=== PATIENT | male | born 1980 | race Caucasian/White ===

== ENCOUNTER 2018-09-01 19:53 | Emergency (ER) | payer OTHER ==
--- NOTE | 2018-09-01 20:06 | PDOC ---
History of Present Illness - General History Source: Patient Exam Limitations: No Limitations - History of Present Illness Initial Comments: 09/01/18 20:54 The patient is a 37 year old male, with no significant PMH, who presents to the emergency department complaining of a headache that began yesterday. The patient states he went skiing yesterday when he slipped and hit his head on ice. The patient describes the intermittent headache as throbbing and dull in nature located to the right religion, no relief with ice pack. The patient denies any open wounds or losing conscience. Denies chest pain, shortness of breath, numbness, tingling,and dizziness. Denies fever, chills, nausea, vomit. PAST MEDICAL HISTORY: no significant history PAST SURGICAL HISTORY: no significant history FAMILY HISTORY: no pertinent history SOCIAL HISTORY: Pt lives with family and is employed. MEDICATIONS: reviewed ALLERGIES: Penicillin Adult ROS General: No fevers or chills, no weakness, no weight loss HEENT: No change in vision. No sore throat,. No ear pain CardioVascular: No chest pain or shortness of breath Respiratory:No cough, or wheezing. Gastrointestinal: no nausea, vomiting, diarrhea or constipation, No rectal bleeding Genitourinary: No dysuria, hematuria, or frequency Musculoskeletal: No joint or muscle pain or swelling Neurologic:+ headache. No vertigo, dizziness or loss of consciousness Psychiatric: nor depression Skin: No rashes or easy bruising Endocrine: no increased thirst or abnormal weight change Allergic: no skin or latex allergy All other systems reviewed and normal Basic PE GENERAL: The patient is awake, alert, and fully oriented, in no acute distress. HEAD: Normal with no signs of trauma. EYES: Pupils equal, round and reactive to light, extraocular movements intact, sclera anicteric, conjunctiva clear. EXTREMITIES: Normal range of motion, no edema. NEUROLOGICAL: Normal speech, normal gait. PSYCH: Normal mood, normal affect. SKIN: +Contusion on right religion. Skin intact. <Giles Chavarria - Last Filed: 09/01/18 20:54> - General History Source: Patient Exam Limitations: No Limitations - History of Present Illness Initial Comments: 09/01/18 20:50 A portion of this note was documented by scribe services under my direction. I have reviewed the details of the note, within reason, and agree with the documentation with the following case summary and management plan written by me. Patient treated in the ED. Nursing notes are reviewed and incorporated into the medical decision-making. Vital signs reviewed. Assessment and plan: This is a 37-year-old male who comes in complaining of hit his head yesterday while skiing. Patient did not pass out but does have a contusion over the temporal area. Patient is had persistent headache that he describes as throbbing. Patient denies any other neurological complaints. We will obtain a CAT scan to rule out any intracranial pathology give patient some Tylenol for the pain Reassess and reevaluate 09/01/18 21:21 CT scan of head negative for any acute intracranial pathology bleeding or fractures <Mulugeta Sherwood I - Last Filed: 09/01/18 21:22> - General Chief Complaint: Headache Stated Complaint: HIT HEAD ON ICE YESTERDAY WHILE SKIING Time Seen by Provider: 09/01/18 20:00 Past History <Giles Chavarria - Last Filed: 09/01/18 20:54> <Mulugeta Sherwood I - Last Filed: 09/01/18 21:22> - Past Medical History Allergies/Adverse Reactions: Allergies Allergy/AdvReac Type Severity Reaction Status Date / Time Penicillins Allergy Intermediate Difficulty Verified 09/01/18 19:56 Breathing Home Medications: Ambulatory Orders NK [No Known Home Medication] 09/01/18 *Physical Exam - Vital Signs Last Vital Signs Temp Pulse Resp BP Pulse Ox 97.6 F 59 L 16 123/86 100 09/01/18 19:54 09/01/18 19:54 09/01/18 19:54 09/01/18 19:54 09/01/18 19:54 <Giles Chavarria - Last Filed: 09/01/18 20:54> Moderate Sedation - Procedure Monitoring Vital Signs: Procedure Monitoring Vital Signs Temperature 97.6 F 09/01/18 19:54 Pulse Rate 59 L 09/01/18 19:54 Respiratory Rate 16 09/01/18 19:54 Blood Pressure 123/86 09/01/18 19:54 O2 Sat by Pulse Oximetry (%) 100 09/01/18 19:54 <Giles Chavarria - Last Filed: 02/12/19 20:54> ED Treatment Course - Medications Given in the ED: ED Medications Discontinued Medications Generic Name Dose Route Start Last Admin Trade Name Andressa PRN Reason Stop Dose Admin Acetaminophen 1,000 mg 09/01/18 20:29 09/01/18 20:45 Tylenol - PO 09/01/18 20:30 1,000 mg ONCE ONE Administration <Giles Chavarria - Last Filed: 09/01/18 20:54> *DC/Admit/Observation/Transfer - Attestations Scribe Attestion: 09/01/18 20:57 Documentation prepared by Giles Chavarria, acting as medical assistant prn for Mulugeta Sherwood MD/DO. <Giles Chavarria - Last Filed: 09/01/18 20:54> - Discharge Dispostion Decision to Admit order: No <Mulugeta Sherwood I - Last Filed: 09/01/18 21:22> Diagnosis at time of Disposition: Scalp contusion Qualifiers: Encounter type: initial encounter Qualified Code(s): S00.03XA - Contusion of scalp, initial encounter - Discharge Dispostion Disposition: HOME Condition at time of disposition: Stable - Patient Instructions Additional Instructions: Take Tylenol as needed for pain. Return to the emergency department immediately with ANY new, persistent or worsening symptoms. Continue any medications as previously prescribed by your physician. You should follow up with your primary doctor as soon as possible regarding today's emergency department visit. . Please make sure your doctor reviews the results of your emergency evaluation. Thank you for coming to the Emergency Department today for your care. It was a pleasure to see you today. Please note that your evaluation is INCOMPLETE until you follow-up with your doctor.
[2018-09-01 20:08] VITALS: BP 123/86; PULSE 59; TEMP 97.6; BMI 25.7
[2018-09-01] MEDS ORDERED: ACETAMINOPHEN 500 MG TABLET (FP) PO ONE (20:29)
[2018-09-01] MEDS ORDERED: ACETAMINOPHEN 500 MG TABLET (FP) ONE (20:44)
== END 2018-09-01 21:35 | disposition home or self-care (01) ==
LOC: FER 19:53
DX: S00.03XA Contusion of scalp, initial encounter (principal); W18.39XA Other fall on same level, initial encounter; Y93.23 Activity, snow (alpine) (downhill) skiing, snowboarding, sledding, tobogganing and snow tubing; Y92.89 Other specified places as the place of occurrence of the external cause
CPT/HCPCS: 70450-TC; 99281-25